=== PATIENT | female | born 1940 | race Caucasian/White ===

== ENCOUNTER → 2017-07-23 | Outpatient (CLI) | payer MEDICARE, OTHER | LOC: M.RAD 15:50 | DX: M75.81 Other shoulder lesions, right shoulder (principal) ==

== ENCOUNTER → 2017-10-15 | Outpatient (CLI) | payer MEDICARE, OTHER | LOC: M.RAD 07:56 | DX: J18.9 Pneumonia, unspecified organism (principal); R05 Cough; R53.83 Other fatigue ==

== ENCOUNTER → 2019-12-05 | Outpatient (CLI) | payer MEDICARE, OTHER | LOC: M.ULTRA 12-01 10:04 | DX: M77.32 Calcaneal spur, left foot (principal); R60.0 Localized edema ==

== ENCOUNTER → 2020-12-18 | Outpatient (CLI) | payer MEDICARE, OTHER | LOC: M.ULTRA 10:30 | PROVIDERS: ATTEND Internal Medicine | DX: N28.89 Other specified disorders of kidney and ureter (principal); K82.8 Other specified diseases of gallbladder ==

== ENCOUNTER → 2020-12-20 | Outpatient (CLI) | payer MEDICARE, OTHER | LOC: M.CT 12:34 | PROVIDERS: ATTEND Internal Medicine | DX: D17.71 Benign lipomatous neoplasm of kidney (principal); K57.30 Diverticulosis of large intestine without perforation or abscess without bleeding; N28.89 Other specified disorders of kidney and ureter ==

== ENCOUNTER → 2021-05-06 | Outpatient (CLI) | payer OTHER | LOC: M.CT 14:36 | PROVIDERS: ATTEND Internal Medicine | DX: D17.71 Benign lipomatous neoplasm of kidney (principal); K57.30 Diverticulosis of large intestine without perforation or abscess without bleeding ==